=== PATIENT | female | born 1995 | race African-American/Black ===

== ENCOUNTER 2016-11-29 18:08 | Emergency (ER) | payer MEDICAID, SELFPAY ==
[2016-11-29 18:35] LABS: Bilirubin Negative (Negative); Blood, Urine Negative (Negative); Clarity Cloudy (Clear); Glucose, Urine (Dipstick) Negative (Negative); Leukocyte Trace (Negative); Nitrite Negative (Negative); Protein, Urine (Dipstick) Negative (Neg-Trace); Urobilinogen 0.2 mg/dL (0.2-1.0); pH, Urine 7.5 (5.0-9.0)
[2016-11-29 18:39] LABS: RBC/HPF 0-3 HPF (0-3); WBC/HPF 0-3 HPF (0-3)
[2016-11-29 18:40] LABS: Bacteria/HPF 2+ HPF (None Seen); Crystals/HPF 2+ AMORPH PHOS HPF (Negative); Pregnancy Test - Urine (BHCG) Negative (Negative)
[2016-11-29 18:41] LABS: Pregu Control Background? CLEAR/WHITE (CLR/WHITE); Pregu Control Bar Appear? YES (CONTROL BAR)
[2016-11-29] MEDS ORDERED: Lidocaine 1% 20 ML MDV ONE (18:59)
[2016-11-29] MEDS ORDERED: Ondansetron ODT 4 MG TAB ONE (18:59)
[2016-11-29] MEDS ORDERED: cefTRIAXone\\ROCEPHIN 1 GM VIAL ONE (18:59)
== END 2016-11-29 19:34 | disposition home or self-care (01) ==
LOC: MADERS 18:08
DX: N39.0 Urinary tract infection, site not specified (principal); J45.909 Unspecified asthma, uncomplicated
CPT/HCPCS: 81001; 81025; 96372; J0696; J2001; Q0162

== ENCOUNTER 2017-03-21 17:08 | Emergency (ER) | payer MEDICAID | END 2017-03-21 18:15 | disposition home or self-care (01) | LOC: MADERS 17:08 | DX: J06.9 Acute upper respiratory infection, unspecified (principal); J45.909 Unspecified asthma, uncomplicated | CPT/HCPCS: 99283 ==

== ENCOUNTER 2017-04-20 16:26 | Emergency (ER) | payer MEDICAID, OTHER ==
[2017-04-20] MEDS ORDERED: Ketorolac Tromethamine 30 MG/ML VIAL ONE (17:06)
[2017-04-20 17:16] LABS: Pregnancy Test - Urine (BHCG) Negative (Negative); Pregu Control Background? CLEAR/WHITE (CLR/WHITE); Pregu Control Bar Appear? YES (CONTROL BAR); Specific Gravity 1.006 (1.002-1.036)
[2017-04-20] MEDS ORDERED: Oseltamivir 75 MG CAP ONE (17:20)
== END 2017-04-20 17:54 | disposition home or self-care (01) ==
LOC: MADERS 16:26
DX: J11.1 Influenza due to unidentified influenza virus with other respiratory manifestations (principal); J45.909 Unspecified asthma, uncomplicated
CPT/HCPCS: 81025; 96372; J1885

== ENCOUNTER 2017-05-27 23:17 | Emergency (ER) | payer MEDICAID, OTHER ==
[2017-05-27] MEDS ORDERED: Meclizine HCl 25 MG TAB ONE (23:40)
[2017-05-27] MEDS ORDERED: Ondansetron ODT 4 MG TAB ONE (23:40)
== END 2017-05-27 23:48 | disposition home or self-care (01) ==
LOC: MADERS 23:17
DX: H83.09 Labyrinthitis, unspecified ear (principal); J45.909 Unspecified asthma, uncomplicated
CPT/HCPCS: 99283; Q0162

== ENCOUNTER 2017-06-08 23:08 | Emergency (ER) | payer MEDICAID ==
[2017-06-08] MEDS ORDERED: Loperamide HCl 2 MG CAP ONE (23:49)
[2017-06-08] MEDS ORDERED: Ondansetron ODT 4 MG TAB ONE (23:49)
== END 2017-06-09 00:03 | disposition home or self-care (01) ==
LOC: MADERS 23:08
DX: A08.4 Viral intestinal infection, unspecified (principal); J45.909 Unspecified asthma, uncomplicated
CPT/HCPCS: 99283; Q0162

== ENCOUNTER 2017-06-24 21:10 | Emergency (ER) | payer OTHER ==
[2017-06-24] MEDS ORDERED: Ketorolac Tromethamine 60 MG/2 ML VIAL ONE (22:01)
[2017-06-24 22:06] LABS: Bilirubin Moderate (Negative); Blood, Urine Large (Negative); Glucose, Urine (Dipstick) Negative (Negative); Leukocyte Negative (Negative); Nitrite Positive (Negative); Protein, Urine (Dipstick) > or equal to 300 mg/dL (Neg-Trace); Specific Gravity, Urine 1.025 (1.005-1.030); Urobilinogen > or = 8.0 mg/dL (0.2-1.0)
[2017-06-24 22:09] LABS: Clarity Cloudy (Clear)
[2017-06-24 22:10] LABS: Bacteria/HPF None Seen HPF (None Seen); Pregnancy Test - Urine (BHCG) Negative (Negative); Pregu Control Background? CLEAR/WHITE (CLR/WHITE); Pregu Control Bar Appear? YES (CONTROL BAR); RBC/HPF GREATER THAN 50-TNTC HPF (0-3); Specific Gravity 1.025 (1.002-1.036); Squamous Epithelial 0-3 HPF (0-3); WBC/HPF 0-3 HPF (0-3)
== END 2017-06-24 23:07 | disposition home or self-care (01) ==
LOC: MADERS 21:10
DX: N93.8 Other specified abnormal uterine and vaginal bleeding (principal)
CPT/HCPCS: 81003; 81015; 81025; 96372; J1885

== ENCOUNTER 2017-07-14 20:56 | Emergency (ER) | payer OTHER ==
[2017-07-14] MEDS ORDERED: Ondansetron ODT 4 MG TAB ONE (21:45)
[2017-07-14] MEDS ORDERED: Loperamide HCl 2 MG CAP ONE (21:45)
== END 2017-07-14 21:50 | disposition home or self-care (01) ==
LOC: MADERS 20:56
DX: K52.9 Noninfective gastroenteritis and colitis, unspecified (principal); J45.909 Unspecified asthma, uncomplicated
CPT/HCPCS: 99283; Q0162

== ENCOUNTER 2017-08-19 07:00 | Emergency (ER) | payer OTHER ==
[2017-08-19] MEDS ORDERED: predniSONE 20 MG TAB ONE (08:00)
[2017-08-19] MEDS ORDERED: Benzonatate 100 MG CAP ONE (08:00)
[2017-08-19] MEDS ORDERED: AMOXicillin 250 MG CAP ONE (08:00)
== END 2017-08-19 08:10 | disposition home or self-care (01) ==
LOC: MADERS 07:00
DX: J02.9 Acute pharyngitis, unspecified (principal); J45.909 Unspecified asthma, uncomplicated
CPT/HCPCS: 99283; J7506

== ENCOUNTER 2017-11-03 11:12 | Emergency (ER) | payer OTHER ==
[2017-11-03 12:07] LABS: Bilirubin Negative (Negative); Blood, Urine Negative (Negative); Glucose, Urine (Dipstick) Negative (Negative); Leukocyte Small (Negative); Nitrite Negative (Negative); Protein, Urine (Dipstick) Negative (Neg-Trace); Specific Gravity, Urine 1.025 (1.005-1.030); Urobilinogen 0.2 mg/dL (0.2-1.0)
[2017-11-03 12:10] LABS: Clarity Hazy (Clear)
[2017-11-03 12:14] LABS: Bacteria/HPF 1+ HPF (None Seen); Pregnancy Test - Urine (BHCG) Negative (Negative); Pregu Control Background? CLEAR/WHITE (CLR/WHITE); Pregu Control Bar Appear? YES (CONTROL BAR); RBC/HPF 0-3 HPF (0-3); Specific Gravity 1.025 (1.002-1.036)
[2017-11-03] MEDS ORDERED: Ibuprofen 800 MG TAB ONE (12:38)
== END 2017-11-03 12:45 | disposition home or self-care (01) ==
LOC: MADERS 11:12
DX: N39.0 Urinary tract infection, site not specified (principal)
CPT/HCPCS: 81003; 81015; 81025; 99283

== ENCOUNTER 2018-03-19 14:31 | Emergency (ER) | payer OTHER ==
[2018-03-19 15:02] LABS: Bilirubin Negative (Negative); Blood, Urine Negative (Negative); Glucose, Urine (Dipstick) Negative (Negative); Leukocyte Small (Negative); Nitrite Negative (Negative); Pregnancy Test - Urine (BHCG) POSITIVE (Negative); Pregu Control Background? CLEAR/WHITE (CLR/WHITE); Pregu Control Bar Appear? YES (CONTROL BAR); Protein, Urine (Dipstick) Negative (Neg-Trace); Specific Gravity 1.025 (1.002-1.036); Specific Gravity, Urine 1.025 (1.005-1.030); pH, Urine 6.5 (5.0-9.0)
[2018-03-19 15:03] LABS: Clarity Hazy (Clear)
[2018-03-19 15:09] LABS: Bacteria/HPF Rare-Few HPF (None Seen)
== END 2018-03-19 15:32 | disposition home or self-care (01) ==
LOC: MADERS 14:31
DX: O99.89 Other specified diseases and conditions complicating pregnancy, childbirth and the puerperium (principal); R11.0 Nausea; M54.9 Dorsalgia, unspecified; Z3A.01 Less than 8 weeks gestation of pregnancy
CPT/HCPCS: 81003; 81015; 81025; 99284

== ENCOUNTER 2018-09-19 15:32 | Emergency (ER) | payer OTHER ==
[~2018-09-19 15:32] MED LIST: Sodium Chloride 0.9% 1,000 ML BAG ONE
[2018-09-19 16:22] LABS: #Eosinphils 0.1 thou/uL (0.0-0.7); #Monocytes 0.6 thou/uL (0.11-0.59); #Neutrophils 6.9 thou/uL (1.40-6.50); %Basophils 0.5 % (0.0-1.0); %Eosinophils 1.3 % (0.0-10.0); %Lymphocytes 20.9 % (21.0-51.0); %Monocytes 5.9 % (0.0-10.0); %Neutrophils 71.4 % (42.0-75.0); Hemoglobin 8.6 g/dL (12.0-16.0); Mean Corpuscular HGB CONC 32.1 g/dL (32.0-36.0); Mean Corpuscular Hemoglobin 27.6 pg (27.0-31.0); Mean Corpuscular Volume 85.9 fL (78.0-98.0); Mean Platelet Volume 7.3 fL (7.4-10.4); Platelet Count 229 thou/uL (130-400); RBC Distribution Width 14.4 % (11.5-14.5); Red Blood Cell (RBC) Count 3.12 mill/uL (4.20-5.40); White Blood Cell (WBC) Count 9.6 thou/uL (4.8-10.8)
[2018-09-19 16:37] LABS: ALT (SGPT) 8 U/L (8-55); AST (SGOT) 16 U/L (5-34); Albumin 3.2 g/dL (3.5-5.0); Alkaline Phosphatase 131 U/L (40-150); Anion Gap 11 mmol/L (10-20); BUN (Urea Nitrogen) 4 mg/dL (7.0-18.7); Bilirubin, Total 0.5 mg/dL (0.2-1.2); Calc. Creatinine Clearance 0 mL/min (70-130); Calcium 8.5 mg/dL (7.8-10.44); Carbon Dioxide 22 mmol/L (22-29); Chloride 107 mmol/L (98-107); Estimated GFR-MDRD Greater than 90; Globulin 3.1 g/dL (2.4-3.5); Glucose 105 mg/dL (70-105); Potassium 3.5 mmol/L (3.5-5.1); Protein, Total 6.3 g/dL (6.0-8.3); Sodium 136 mmol/L (136-145)
== END 2018-09-19 18:07 | disposition home or self-care (01) ==
LOC: MADERS 15:32
DX: O99.013 Anemia complicating pregnancy, third trimester (principal); D64.9 Anemia, unspecified; Z3A.31 31 weeks gestation of pregnancy
CPT/HCPCS: 80053; 84484; 85025; 93005; 96360; J7050

== ENCOUNTER 2018-10-19 18:38 | Emergency (ER) | payer OTHER | END 2018-10-19 20:33 | disposition short-term general hospital (02) | LOC: MADERS 18:38 | DX: O99.89 Other specified diseases and conditions complicating pregnancy, childbirth and the puerperium (principal); R10.30 Lower abdominal pain, unspecified; Z3A.35 35 weeks gestation of pregnancy | CPT/HCPCS: 99284 ==

== ENCOUNTER 2019-01-27 09:27 | Emergency (ER) | payer OTHER, SELFPAY ==
[2019-01-27] MEDS ORDERED: Acetaminophen 325 MG TAB ONE (09:51)
[2019-01-27] MEDS ORDERED: Ibuprofen 600 MG TAB ONE (09:51)
== END 2019-01-27 09:58 | disposition home or self-care (01) ==
LOC: MADERS 09:27
DX: J02.0 Streptococcal pharyngitis (principal)
CPT/HCPCS: 99283

== ENCOUNTER 2019-05-29 09:13 | Emergency (ER) | payer SELFPAY | END 2019-05-29 09:55 | disposition home or self-care (01) | LOC: MADERS 09:13 | DX: J06.9 Acute upper respiratory infection, unspecified (principal) | CPT/HCPCS: 99282 ==

== ENCOUNTER 2019-09-26 06:31 | Emergency (ER) | payer SELFPAY | END 2019-09-26 07:13 | disposition home or self-care (01) | LOC: MADERS 06:31 | DX: K02.9 Dental caries, unspecified (principal) | CPT/HCPCS: 99282 ==

== ENCOUNTER 2019-10-19 22:57 | Emergency (ER) | payer SELFPAY ==
[2019-10-19] MEDS ORDERED: Dexamethasone 4 MG TAB ONE (23:15)
[2019-10-19] MEDS ORDERED: Amoxicillin/Potassium Clav 875 MG TAB ONE (23:15)
== END 2019-10-19 23:22 | disposition home or self-care (01) ==
LOC: MADERS 22:57
DX: K04.7 Periapical abscess without sinus (principal)
CPT/HCPCS: 99283; J8540